=== PATIENT | female | born 1935 | race Caucasian/White ===

== ENCOUNTER 2016-12-28 09:45 | Outpatient (RCR) | payer OTHER | END 2016-12-29 | disposition home or self-care (01) | LOC: PTY 09:45 | PROVIDERS: ATTEND Internal Medicine | DX: M17.0 Bilateral primary osteoarthritis of knee (principal); Z96.652 Presence of left artificial knee joint; Z83.3 Family history of diabetes mellitus; E03.9 Hypothyroidism, unspecified; I20.9 Angina pectoris, unspecified; M19.042 Primary osteoarthritis, left hand; M19.041 Primary osteoarthritis, right hand ==

== ENCOUNTER 2017-01-04 14:30 | Outpatient (RCR) | payer OTHER | END 2017-01-28 | disposition home or self-care (01) | LOC: PTY 14:30 | PROVIDERS: ATTEND Internal Medicine | DX: M17.0 Bilateral primary osteoarthritis of knee (principal); M54.2 Cervicalgia; M54.9 Dorsalgia, unspecified ==